=== PATIENT | male | born 1950 | race Caucasian/White ===

== ENCOUNTER 2016-12-14 16:35 | Emergency (ER) | payer MEDICARE, OTHER ==
[2015-10-18 13:14] VITALS: BMI 27.7
[~2016-12-14 16:35] MED LIST: CARTIA XT180 MG PO; GLUCOPHAGE500 MG PO; PACERONE200 MG PO; PLAVIX75 MG PO; PRAVACHOL20 MG PO
[2016-12-14 17:45] LABS: BASOPHILS 0.3 % (0-2); EOSINOPHILS 4.5 % (0-7); HEMATOCRIT 43.4 % (42.0-54.0); HEMOGLOBIN 14.4 g/dL (13.5-17.5); IMMATURE GRANULOCYTES 0.3 % (0-5); LYMPHOCYTES 10.4 % (15-50); MCH 25.5 pg (26.0-34.0); MCHC 33.2 g/dL (31.0-37.0); MEAN PLATELET VOLUME 10.1 fL (7.4-10.4); MONOCYTES 12.8 % (2-11); NEUTROPHILS 71.7 % (40-80); PLATELET COUNT 108 10x3/uL (130-400); RBC 5.64 10x6/uL (4.20-6.10); RDW 16.4 % (11.5-14.5); WBC 7.1 10x3/uL (4.8-10.8)
[2016-12-14 18:11] LABS: ALBUMIN 3.7 g/dL (3.4-5.0); ANION GAP 14.7 mmol/L (8-16); BILIRUBIN - TOTAL 0.4 mg/dL (0.2-1.3); CREATININE - SERUM 1.2 mg/dL (0.6-1.3); POTASSIUM - SERUM 3.7 mmol/L (3.5-5.1); PROTEIN - SERUM 7.3 g/dL (6.4-8.2)
== END 2016-12-14 18:53 | disposition home or self-care (01) ==
LOC: D.ER 16:35
PROVIDERS: Family Medicine
DX: L03.319 Cellulitis of trunk, unspecified (principal); L03.116 Cellulitis of left lower limb; L03.115 Cellulitis of right lower limb; B35.4 Tinea corporis; E11.9 Type 2 diabetes mellitus without complications; Z95.0 Presence of cardiac pacemaker

== ENCOUNTER 2017-12-14 14:57 | Emergency (ER) | payer MEDICARE, OTHER ==
[~2017-12-14] VITALS: Ht 177.8 cm; Wt 81.8 kg
[2017-12-14 15:02] VITALS: Ht 177.8 cm; Wt 81.8 kg
[2017-12-14] MEDS ORDERED: TOPROL XL25 MG PO (15:05)
[2017-12-14 17:36] LABS: BASOPHILS 0.1 % (0-2); EOSINOPHILS 0.8 % (0-7); HEMATOCRIT 41.7 % (42.0-54.0); HEMOGLOBIN 14.7 g/dL (13.5-17.5); IMMATURE GRANULOCYTES 0.4 % (0-5); LYMPHOCYTES 8.5 % (15-50); MCHC 35.3 g/dL (31.0-37.0); MEAN PLATELET VOLUME 10.5 fL (7.4-10.4); MONOCYTES 11.2 % (2-11); PLATELET COUNT 128 10x3/uL (130-400); RBC 4.74 10x6/uL (4.20-6.10); RDW 13.6 % (11.5-14.5); WBC 11.5 10x3/uL (4.8-10.8)
[2017-12-14 17:54] LABS: APTT 29.2 SECONDS (22.8-39.4); INR 1.06 (0.85-1.17); PROTIME 13.4 SECONDS (11.6-15.0)
[2017-12-14 17:56] LABS: D-DIMER-QUANTITATIVE 0.62 ug/mLFEU (0.20-0.54)
[2017-12-14 18:02] LABS: ALBUMIN 3.4 g/dL (3.4-5.0); ALKALINE PHOSPHATASE 70 U/L (46-116); ALT (SGPT) 54 U/L (10-68); BILIRUBIN - TOTAL 0.98 mg/dL (0.2-1.3); CALC OSMOLALITY 281 mosm/kg (275-300); CALCIUM 9.2 mg/dL (8.5-10.1); CARBON DIOXIDE 22.3 mmol/L (21.0-32.0); CHLORIDE - SERUM 103 mmol/L (98-107); POTASSIUM - SERUM 3.8 mmol/L (3.5-5.1); PROTEIN - SERUM 7.4 g/dL (6.4-8.2); SODIUM 138 mmol/L (136-145); UREA NITROGEN 11 mg/dL (7-18); eGFR NON AFRICAN AMERICAN 79 mL/min (90-120)
[2017-12-14 18:07] LABS: GLUCOSE 224 mg/dL (74-106)
[2017-12-14 18:33] VITALS: BP 135/66
== END 2017-12-14 18:34 | disposition home or self-care (01) ==
LOC: D.ER 14:57
PROVIDERS: Family Medicine
DX: I74.3 Embolism and thrombosis of arteries of the lower extremities (principal); E11.9 Type 2 diabetes mellitus without complications; I10 Essential (primary) hypertension; F17.200 Nicotine dependence, unspecified, uncomplicated

== ENCOUNTER → 2017-12-20 09:57 | Outpatient (CLI) | payer MEDICARE, OTHER ==
[2017-12-14 15:02] VITALS: BMI 25.8
[~2017-12-20 09:57] MED LIST changes: +TOPROL XL25 MG PO
== END | disposition home or self-care (01) ==
LOC: D.CT 09:57
DX: I73.9 Peripheral vascular disease, unspecified (principal)

== ENCOUNTER → 2018-05-15 13:26 | Outpatient (CLI) | payer MEDICARE, OTHER ==
[2017-12-14 15:02] VITALS: BMI 25.8
--- NOTE | ~2018-05-15 | EC ---
PATIENT:SACHIN VERAS DATE OF SERVICE: 05/15/18 SEX: M MEDICAL RECORD: [id number] DATE OF : 46 [facility] AGE [facility] PAT[facility]: 68 ADMISSION DATE: 05/15/18 REFERRING PHYSICIAN: INTERPRETING PHYSICIAN: AYESHA ROSALES MD ECHOCARDIOGRAM REPORT ECHO CHARGES 4 ECHO COMPLETE Date: 05/15/18 CLINICAL DIAGNOSIS: CAD HX OF STENTS/PACER ECHOCARDIOGRAPHIC MEASUREMENTS (adult normal given) AC root (d.<3.7cm) 3.3 cm LV Septum d (<1.2 cm> 1.1 cm Valve Excursion 1.7 cm LV Septum (systole) 1.2 cm Left Atria (s.<4.0cm> 4.4 cm LVPW d(<1.2cm) 1.3 cm RV (d.<2.3cm) 4.2 cm LVPW (sytole) 1.4 cm LV diastole(<5.6CM) 7.5 cm MV E-F(>70mm/sec) cm LV systole 6.6 cm LVOT Diameter 1.9 cm MV exc.(>10mm) 2.1 cm Est.ejection fraction (50-75%) % DOPPLER: LVIT cm/sec A 139 cm/sec E 108 cm/sec LA cm/sec RVSP 65 mmHg LVOT 118 cm/sec AOP1/2T m/s Asc. Ao 149 cm/sec RVOT 102 cm/sec RA cm/sec PA 134 cm/sec AV Gradient Peak 8.64 mmHg AV Mean 4.39 mmHg AV Area 2.3 cm MV Gradient Peak 5.84 mmHg MV Mean 2.05 mmHg MV Area cm COMMENTS: Electrical Maintenance Technician: Spencer SOARES Plant Custodian: 1 Dr. Rosales TAPE# PACS Pericardial Effusion N DATE OF SERVICE: 05/15/2018 PROCEDURE: Echocardiogram. FINDINGS: 1. Left ventricular chamber size is dilated. Left ventricular systolic function is moderately reduced, overall ejection fraction 30%. 2. The left atrium is mildly dilated at 4.4 cm. Right atrium and right ventricle chamber sizes are as well [id number] dilated. 3. Valvular structures have normal structure and motion. ECHOCARDIOGRAM REPORT [id number] SACHIN VEARS 4. Doppler interrogation reveals moderate mitral regurgitation, moderate tricuspid regurgitation, no other valvular insufficiency or stenosis. Pulmonary systolic pressure is elevated estimated 65 mmHg. 5. No evidence of pericardial effusion or left ventricular thrombus. TRANSINT:[id number] Voice Confirmation ID: [id number] DOCUMENT ID: [id number] AYESHA ROSALES MD CC: [id number] DICTATION DATE: 05/19/18 1029 BULK COOLER INSTALLER: 05/19/18 1143 DEP CLI 05/15/18 [place] [id number] [place] [id number]
== END | disposition home or self-care (01) ==
LOC: D.HCCARDIO 13:26
PROVIDERS: ATTEND Internal Medicine Interventional Cardiology
DX: I25.10 Atherosclerotic heart disease of native coronary artery without angina pectoris (principal)

== ENCOUNTER → 2019-03-24 12:34 | Outpatient (CLI) | payer MEDICARE, OTHER ==
[2017-12-14 15:02] VITALS: BMI 25.8
== END | disposition home or self-care (01) ==
LOC: D.CT 12:34
PROVIDERS: ATTEND Family Medicine
DX: M54.2 Cervicalgia (principal)